=== PATIENT | female | born 1965 | race African-American/Black ===

== ENCOUNTER 2021-03-18 09:47 | Day surgery (SDC) | payer BC ==
[2021-03-18 11:05] VITALS: BMI 31.2
[2021-03-18] MEDS ORDERED: ROCURONIUM BROMIDE 50 MG/5 ML SYRINGE ONE (11:27)
[2021-03-18] MEDS ORDERED: PROPOFOL 20 ML ONE (11:27)
[2021-03-18] MEDS ORDERED: MIDAZOLAM HCL 2 MG/2 ML SINGLE DOSE VIAL ONE (11:27)
[2021-03-18] MEDS ORDERED: ACETAMINOPHEN 325 MG TABLET (FP) PO PRN (15:07)
[2021-03-18] MEDS ORDERED: ONDANSETRON 4 MG/2 ML VIAL IVPUSH PRN ×2 (15:07→15:20)
[2021-03-18] MEDS ORDERED: DEXTROSE 5%-0.45% SALINE 1,000 ML IV SCH (15:15)
[2021-03-18] MEDS ORDERED: oxyCODONE HCL 5 MG TABLET PO PRN (15:20)
[2021-03-18] MEDS ORDERED: PROMETHAZINE HCL 25 MG/1 ML VIAL IVPUSH PRN (15:20)
[2021-03-18] MEDS ORDERED: PROMETHAZINE HCL 25 MG/1 ML VIAL ONE (16:51)
[2021-03-18 18:20] VITALS: BP 95/60
[2021-03-18 18:39] VITALS: PULSE 64; TEMP 97
== END 2021-03-18 18:39 | disposition home or self-care (01) ==
LOC: FASU 09:47
PROVIDERS: ATTEND Plastic Surgery
PROC: 0HBV0ZZ Excision of Bilateral Breast, Open Approach (ICD-10-PCS; principal; 2021-03-18 12:05)
DX: N62 Hypertrophy of breast (principal)
CPT/HCPCS: 88305-TC; 94760